=== PATIENT | female | born 1965 | race Caucasian/White ===

== ENCOUNTER 2024-10-29 09:22 | Emergency (ER) | payer MEDICAID, SELFPAY ==
[2024-10-29 10:15] VITALS: BP 113/71; PULSE 70; RESP 17; TEMP 36.7; O2SAT 98; BMI 21.0
--- NOTE | 2024-10-29 10:33 | CT_ITS ---
FINAL REPORT CLINICAL HISTORY: fall injury COMPARISON: none FINDINGS: CT LUMBAR SPINE TECHNIQUE: Thin section axial CT with sagittal and coronal reconstructions This study was performed with techniques to keep radiation doses as low as reasonably achievable, (ALARA). Individualized dose reduction techniques using automated exposure control or adjustment of mA and/or kV according to the patient's size were employed. FINDINGS: There are postoperative changes from anterior and posterior fusion at L5-S1. There is grade 1 spondylolisthesis of L5 on S1 with associated L5 pars defects. Nondisplaced fractures are noted of the right L1 and L2 transverse processes. There are no compression fractures. Mild diffuse degenerative disc disease is noted. IMPRESSION: Chronic postoperative changes of the lumbosacral junction. Nondisplaced fractures right L1 and L2 transverse processes. Reviewed, Interpreted and Dictated by Donita Barron MD Transcribed by Nivia Montejo Authenticated and [facility]
--- NOTE | 2024-10-29 10:33 | CT_ITS ---
FINAL REPORT TECHNIQUE: Axial images through the pelvis were performed by computed tomography. Sagittal and coronal reconstruction images were performed. This study was performed with techniques to keep radiation doses as low as reasonably achievable (ALARA). Individualized dose reduction techniques using automated exposure control or adjustment of mA and/or kV according to the patient's size were employed. CLINICAL HISTORY: fall injry COMPARISON: none FINDINGS: No fracture is identified. No dislocation identified. No significant degenerative changes identified. No soft tissue abnormality. IMPRESSION: No acute process. Reviewed, Interpreted and Dictated by Donita Barron MD Transcribed by Nivia Montejo Authenticated and [facility]
--- NOTE | 2024-10-29 10:34 | HMH.EDGENADL ---
Discharge Plan Disposition Patient Disposition: Home, Self-Care Prescriptions Prescriptions: New hydrocodone-acetaminophen 5-325 mg tablet 1 tab PO Q6H PRN (Reason: pain) 3 Days Qty: 12 0RF cyclobenzaprine 5 mg tablet 5 mg PO TID PRN (Reason: muscle spasm) 5 Days Qty: 15 0RF No Action albuterol sulfate 90 mcg/actuation HFA aerosol inhaler 1 - 2 puff INHALATION Q6HP PRN (Reason: Wheezing) gabapentin 400 mg capsule 400 mg PO TIDP PRN (Reason: nerve pain) sertraline [Zoloft] 100 mg tablet 100 mg PO DAILY lamotrigine 200 mg tablet 200 mg PO DAILY Patient Comments: TAKE 1 TABLET BY MOUTH DAILY. DO NOT RUN OUT OF THE MEDICATION OR YOU MUST RESTART THE TAPER DOSE docusate sodium 100 mg capsule 100 mg PO BIDP PRN (Reason: Constipation) Patient Comments: TAKE 1 CAPSULE BY MOUTH 2 TIMES DAILY. rosuvastatin 5 mg tablet 5 mg PO HS Patient Comments: TAKE 1 TABLET BY MOUTH NIGHTLY. Referrals Follow up/Referrals: Fiona Mariee APRN [Primary Care Provider] - See instructions Activity Restrictions/Add. Instructions Additional Instructions/Restrictions: As discussed your hydrocodone/acetaminophen prescription were not sent to your pharmacy given the chronic opiate prescriptions that you already have. Please take your muscle relaxer and you may take 400 mg of ibuprofen 3 times a day as needed for your symptoms as well. Your specific diagnosis is an L1 and L2 transverse process fracture which as discussed are nonoperative. You may wear your back brace as discussed. Clinical Impressions Clinical Impression: Contusion of lower back, Fall, Fracture of transverse process of lumbar vertebra Print Language Print Language: [place] Discharge ED Provider: Marysol Cortes General Adult HPI General Chief complaint: Fall Stated complaint: Lower back pain leg pain Time Seen by Provider: 10/29/24 10:28 History of Present Illness HPI narrative: Patient is a 59-year-old female presenting today with lower back and pelvis pain after a fall 1 week ago. She went to [facility] had an x-ray which she was told was unremarkable. She states the pain is only worsened since that time. Pain is located in the sacroiliac region and lower lumbar spine on the right paraspinal area from historical standpoint. Related Data Home Medications ?Medication ?Instructions ?Recorded ?Confirmed albuterol sulfate 90 mcg/actuation 1 - 2 puff inhalation Q6HP PRN 09/23/19 10/29/24 aerosol inhaler Wheezing gabapentin 400 mg capsule 400 mg PO TIDP PRN nerve pain 09/23/19 10/29/24 sertraline 100 mg tablet (Zoloft) 100 mg PO DAILY 09/23/19 10/29/24 docusate sodium 100 mg capsule 100 mg PO BIDP PRN Constipation 10/29/24 10/29/24 lamotrigine 200 mg tablet 200 mg PO DAILY 10/29/24 10/29/24 rosuvastatin 5 mg tablet 5 mg PO HS 10/29/24 10/29/24 Previous Rx's ?Medication ?Instructions ?Recorded cyclobenzaprine 5 mg tablet 5 mg PO TID PRN muscle spasm 5 10/29/24 days #15 tabs hydrocodone 5 mg-acetaminophen 325 1 tab PO Q6H PRN pain 3 days #12 10/29/24 mg tablet tabs Allergies Allergy/AdvReac Type Severity Reaction Status Date / Time No Known Allergies Allergy Verified 09/23/19 10:24 [facility] Disclaimer: The information contained in this section may have been updated after the patient was seen, as this information can be updated by other users. Medical History (Updated 10/29/24 @ 11:39 by Marysol Cortes MD) Cough Nausea & vomiting Surgical History (Updated 10/29/24 @ 10:40 by Maria L Kay RN) History of tonsillectomy Hx of section Hx of tubal ligation H/O lumbosacral spine surgery Social History Smoking Status: Current every day smoker alcohol intake: never substance use type: denies use current occupational status: unemployed Travel in the last 8 weeks: None household members: family housing: house Have you lived/traveled outside [place] in past 30 days?: No Contact w/someone who lives/traveled outside [place] past 30 days?: No Exposure to someone with infectious disease in past 14 days?: No Do you have a fever (greater than 100.4 F or 38 C)?: No Have you tested positive for COVID-19: No Exposed to someone with COVID-19 in past 14 days?: No Do you have a sore throat?: No Do you have a cough?: No Do you have any weakness?: No Do you have any diarrhea?: No Are you experiencing any unusual bleeding?: No Do you have any muscle aches/pain?: No Do you have any abdominal pain?: No Are you experiencing loss of taste or smell?: No Other Medical History Have you received the Pneumonia Vaccine: Yes ROS Obtained: Yes All systems reviewed & no additional complaints except as documented Physical Exam General General appearance: alert and in no apparent distress Respiratory Respiratory exam: Present normal lung sounds bilaterally Cardiovascular Cardiovascular exam: Present regular rate Back Exam Back 1 view image: 1. Tenderness to palpation no step-offs or deformities neurovasc intact distal Neurological Exam Neurological exam: Present alert and oriented X3 Medical Decision Making Medical Records Screening: Per USPSTF and CDC recommendations, given the prevalence of disease in our region, it is our hospital?s policy to screen for HIV and viral Hepatitis for all patients aged 18 and over and those with ongoing risk factors. Julius Inquiry Pt receiving controlled substance: No Vital Signs: 10/29/24 10:15 Temperature 98.1 F Temperature Source Oral Pulse Rate [Right] 70 Respiratory Rate 17 Blood Pressure [Right Arm] 113/71 Blood Pressure Mean [Right Arm] 85 Blood Pressure Source [Right Arm] Automatic Cuff 02 Sat by Pulse Oximetry 98 Oxygen Delivery Method Room Air Orders (Tests/Meds): ED MEDICATIONS Discontinued Medications Generic Name Dose Route Start Last Admin Trade Name Freq PRN Reason Stop Dose Admin Ketorolac Tromethamine 30 mg 10/29/24 10:33 10/29/24 10:38 Ketorolac 30mg/Ml Vial IM 10/29/24 10:34 30 mg ONCE ONE Administration ORDERS Category Date Time Status CT bony pelvis Stat Cat Scan 10/29/24 10:[address] lumbar spine wo con Stat Cat Scan 10/29/24 10:33 Completed Medical Decision Narrative: 59-year-old female with above history and physical. She has no pain or tenderness elsewhere in her body other than what is located from history and physical standpoint. Will get a lumbar spine and bony pelvis CT scan for further evaluation Toradol IM has been administered will reassess. CT scans performed which I personally interpreted which show L1 and L2 transverse process fracture no other abnormality seen both on my interpretation and radiology read. Discussed this with the patient is nonoperative supportive care discussed she is already on many opiates after looking at the prescription monitoring system I did initially write for acetaminophen hydrocodone but did not transmit this. She has been given a prescription of muscle relaxer advised to take ibuprofen and wear a back brace she was discharged in stable condition. Critical Care Critical Care Time Critical Care Time: No
[2024-10-29] MEDS: KETOROLAC 30MG/ML VIAL 30 MG IM (10:38)
--- NOTE | 2024-10-29 11:37 | PC.NURSE ---
DR CADENA AT BEDSIDE TO UPDATE PT
[2024-10-29 11:44] VITALS: BP 115/70; PULSE 72; RESP 16; TEMP 36.7; O2SAT 97
== END 2024-10-29 11:46 | disposition home or self-care (01) ==
PROVIDERS: Emergency Provider Student in an Organized Health Care Education/Training Program; PCP Nurse Practitioner
DX: S32.009A Unspecified fracture of unspecified lumbar vertebra, initial encounter for closed fracture (principal); S30.0XXA Contusion of lower back and pelvis, initial encounter; M54.50 Low back pain, unspecified; R10.2 Pelvic and perineal pain; W19.XXXA Unspecified fall, initial encounter; Y93.9 Activity, unspecified
CPT/HCPCS: 72131; 72192; 96372; 99284; J1885